=== PATIENT | male | born 1940 | race Asian ===

== ENCOUNTER 2018-08-24 03:42 | Emergency (ER) | payer MEDICAID ==
[~2018-08-24] VITALS: Ht 180.3 cm; Wt 68.0 kg
--- NOTE | 2018-08-24 03:55 | NUR ---
ED Nurse Note: Patient was brought by [facility] from [facility] due to left shoulder pain 02/09. Per EMT patient asked for pain meds at [facility] and RN thought its chest pain, she called 911. AAO x4, VSS at this time, skin is dry, intact, warm to touch.
[2018-08-24 03:56] VITALS: BP 128/69
[2018-08-24] MEDS ORDERED: Morphine Sulfate 4mg/ml Inj (IV USE ONLY) IVP ONE ×2 (04:00→04:30)
--- NOTE | 2018-08-24 04:00 | Emergency Room Report ---
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 He has a history of pain because of this. He's been in and out of the hospital. He felt multiple attempts at chemotherapy. He was just at [facility] and discharged to long term less than 24 hours ago. He has not gotten his pain medication. He presents with chief complaint of right shoulder pain and right arm pain. He has metastatic cancer to that area and require surgery for. Nursing staff that he may have chest pain so they called 911. Patient denies any chest pain. Pain is constant for him. No change from before. Pain is 10 out of 10. Worse with movement. No fever chills but no nausea no vomiting. Denies any other complaint. He has selective treatment with comfort care. Allergies: Coded Allergies: SULFA (SULFONAMIDE ANTIBIOTICS) (Verified Allergy, Unknown, 08/24/18) Patient History Past Medical History: see triage record, old chart reviewed Past Surgical History: other Pertinent Family History: none Social History: Denies: smoking Immunizations: other Reviewed Nursing Documentation: PMH: Agreed; PSxH: Agreed Nursing Documentation-PMH Past Medical History: No History, Except For Hx Hypertension: Yes - right shoulder surgery Hx Diabetes: Yes Hx Cancer: Yes - lung cancer metastasized to bone Review of Systems Eye: Denies: eye pain, blurred vision ENT: Denies: ear pain, nose congestion, throat swelling Respiratory: Denies: cough, shortness of breath Cardiovascular: Denies: chest pain, palpitations Gastrointestinal: Denies: abdominal pain, diarrhea, nausea, vomiting Musculoskeletal: Reports: back pain, joint pain Skin: Denies: rash Neurological: Denies: headache, numbness Endocrine: Denies: increased thirst, increased urine Hematologic/Lymphatic: Denies: easy bruising All Other Systems: negative except mentioned in HPI Physical Exam Vital Signs Date Time Temp Pulse Resp B/P (MAP) Pulse Ox O2 Delivery O2 Flow Rate FiO2 08/24/18 03:40 99.0 100 16 128/69 98 vitals unremarkable Sp02 EP Interpretation: reviewed, normal General Appearance: alert, cachetic Head: normocephalic, atraumatic Eyes: bilateral eye PERRL, bilateral eye EOMI ENT: hearing grossly normal, normal pharynx Neck: full range of motion, supple, no meningismus Respiratory: chest non-tender, lungs clear, normal breath sounds Cardiovascular #1: regular rate, rhythm, no murmur Gastrointestinal: normal bowel sounds, non tender, no mass, no organomegaly, no bruit, non-distended Musculoskeletal: back normal, normal range of motion, tender - Over the right shoulder and arm Neurologic: alert, oriented x3 Psychiatric: mood/affect normal Skin: warm/dry Medical Decision Making Diagnostic Impression: Primary Impression: Pain due to malignant neoplasm metastatic to bone ER Course Patient presents with exacerbation of his chronic pain. This is probably secondary to his malignancy with metastasis to the bone. He just had recent blood work done less than 24 hours ago.. Be at baseline. I see no need for further workup. He was just discharged from long term and has not received any pain medication. He is scheduled for 9 AM today. Last Vital Signs Date Time Temp Pulse Resp B/P (MAP) Pulse Ox O2 Delivery O2 Flow Rate FiO2 08/24/18 03:40 99.0 100 16 128/69 98 Status: improved Disposition: XFER SNF Condition: Stable Scripts Unable to Obtain Active Prescriptions or Reported Meds Additional Instructions: Continue with pain management. Follow-up with your doctor in 7 days. Return if worse. Killian Chen MD Aug 24, 2018 04:00
--- NOTE | 2018-08-24 04:15 | NUR ---
ED Nurse Note: Patient is medicated, states that his pain 2/10.
--- NOTE | 2018-08-24 04:17 | NUR ---
ED Nurse Note: Spoke with Tai at [facility] to inform her that patient will return.
--- NOTE | 2018-08-24 04:20 | NUR ---
ED Nurse Note: Spoke with Xiomara at [facility], also that patient is returning - report given.
--- NOTE | 2018-08-24 04:50 | NUR ---
ED Nurse Note: Patient started desaturating, O2 at 86%. Placed on 2.5 L/NC.
[2018-08-24 04:52] VITALS: BP 132/60
[2018-08-24 06:00] VITALS: BP 132/60
--- NOTE | 2018-08-24 06:01 | NUR ---
ED Nurse Note: Pt cleared by health care Provider for discharge. DC instructions/prescription was given and explained to pt and verbalized understanding of teachings. All medical deviecs such as ID band and IV removed. Pt is AAO x4, ambulatory and left with all personal belongings.
== END 2018-08-24 05:50 ==
LOC: EDSEX 03:42 → EDBD 03:42 → EMR 04:00
DX: M25.512 Pain in left shoulder (principal); G89.29 Other chronic pain; C34.90 Malignant neoplasm of unspecified part of unspecified bronchus or lung; C79.51 Secondary malignant neoplasm of bone; Z88.2 Allergy status to sulfonamides; E11.9 Type 2 diabetes mellitus without complications
CPT/HCPCS: 96361; 96374; 96375; 99284; J2270; J2405